=== PATIENT | female | born 1985 | race Hispanic/Latino ===

== ENCOUNTER 2018-06-29 20:07 | Emergency (ER) | payer SELFPAY ==
[~2018-06-29] VITALS: Ht 154.9 cm; Wt 63.5 kg
[2018-06-29 21:40] LABS: BILIRUBIN,URINE NEGATIVE (NEGATIVE); CLARITY,URINE CLEAR (CLEAR); COLOR,URINE YELLOW (YELLOW); KETONES,URINE NEGATIVE (NEGATIVE); LEUKOCYTE ESTERASE ,URINE NEGATIVE (NEGATIVE); NITRITE,URINE NEGATIVE (NEGATIVE); PROTEIN,URINE DIPSTICK NEGATIVE (NEGATIVE); URINE UROBILINOGEN 0.2 mg/dL (0.2 - 1)
[2018-06-29 21:41] LABS: PREGNANCY TEST, URINE NEGATIVE (NEGATIVE)
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
[2018-06-29 21:55] LABS: EPITHELIAL CELLS,URINE MODERATE /LPF; MUCUS,URINE FEW (RARE); RBC,URINE 0-5 /HPF (0-5); WBC,URINE (MAN) 0-5 /HPF (0-5)
--- NOTE | 2018-06-29 23:01 | Discharge Summary ---
CLEVE GALLAGHER (00:01) LEÓN PETERSON MD Job#: [id number] CQ
[2018-06-29] MEDS ORDERED: ROBAXIN-750750 MG PO (23:31)
[2018-06-29] MEDS ORDERED: NAPROXEN250 MG PO (23:31)
== END 2018-06-29 23:40 | disposition home or self-care (01) ==
LOC: ER 20:07
DX: G89.11 Acute pain due to trauma (principal); M54.2 Cervicalgia; M54.6 Pain in thoracic spine; M25.512 Pain in left shoulder; V53.5XXA Driver of pick-up truck or van injured in collision with car, pick-up truck or van in traffic accident, initial encounter; Y92.488 Other paved roadways as the place of occurrence of the external cause
CPT/HCPCS: 71046; 72050; 81001; 81025; 99284